=== PATIENT | female | born 1965 | race Caucasian/White ===

== ENCOUNTER 2017-12-27 10:04 | Emergency (ER) | payer OTHER ==
[~2017-12-27] VITALS: Ht 157.5 cm; Wt 88.0 kg
[2017-12-27 10:09] VITALS: BP 113/66
--- NOTE | 2017-12-27 10:16 | NUR ---
PT AMBULATED WITH WALKER TO ER BED 04
[2017-12-27] MEDS ORDERED: NACL 0.9% 1,000 ML IV ONE (10:30)
[2017-12-27] MEDS ORDERED: ONDANSETRON 4 MG/2 ML VIAL IVP ONE (10:30)
--- NOTE | 2017-12-27 10:41 | NUR ---
52 yo f bib self from board and care w/ mulriple complaints. Pt reports history of gastritis. reports vomitting continuosly, diarrhea x 5 times a day. Lost 40 lbs in the last 6 months, unable to hold water down. Pt also reports alan knee pain for years, states that they are "fractured" and is requesting norco and/or percocet. Also pt presents with pulsating headache, requesting Ct scan of head. Weak/fatigue. Reports "not feeling well". AAOx4. gcs 15. cms intact. rr even and unlabored. abd is large and puffy, soft and non-tender. er md sechrist notified. pt needs met. safety precautions in place. will continue to monitor.
[2017-12-27 10:51] LABS: BASOPHILS % (AUTO) 0.7 % (0.0-2.0); EOSINOPHILS # (AUTO) 0.1 K/uL (0-0.4); EOSINOPHILS % (AUTO) 1.7 % (0.0-4.0); HEMATOCRIT 37.9 % (36-48); LYMPHOCYTES # (AUTO) 2.2 K/uL (2.5-16.5); LYMPHOCYTES % (AUTO) 32.2 % (20.5-51.1); MEAN CORPUSCULAR HEMOGLOBIN 31 pg (27-31); MEAN CORPUSCULAR HGB CONC 34 g/dL (33-37); MEAN CORPUSCULAR VOLUME 92.1 fL (80-94); MONOCYTES % (AUTO) 14.5 % (1.7-9.3); NEUTROPHILS # (AUTO) 3.5 K/uL (1.8-7.7); NEUTROPHILS % (AUTO) 50.9 % (42.2-75.2); PLATELET COUNT (AUTO) 243 K/uL (140-450); RED BLOOD CELL COUNT(AUTO) 4.12 MIL/uL (4.20-5.40); RED CELL DISTRIBUTION WIDTH 14.6 % (11.6-13.7); WHITE BLOOD COUNT (AUTO) 6.9 K/uL (4.8-10.8)
[2017-12-27 10:52] LABS: APPEARANCE,URINE CLEAR (CLEAR); BILIRUBIN,URINE 1+ (NEGATIVE); BLOOD, URINE NEGATIVE (NEGATIVE); LEUKOCYTE ESTERASE ,URINE NEGATIVE (NEGATIVE); NITRITE, URINE NEGATIVE (NEGATIVE); PH,URINE 5.5 (5.0-9.0); UGLUCOSE NEGATIVE (NEGATIVE)
[2017-12-27 11:02] LABS: BARBITURATE, URINE NEG. ng/ml (NEG <=200); BENZODIAZEPINE, URINE POS. ng/mL (NEG <=200); CANNABINOID, URINE POS. ng/mL (NEG <=50); COCAINE, URINE NEG. ng/mL (NEG <=300); OPIATE, URINE NEG. ng/mL (NEG <=2000); PHENCYCLIDINE SCREEN,URINE NEG. ng/mL (NEG <=25)
[2017-12-27 11:10] LABS: ALBUMIN 3.5 g/dL (3.4-5.0); ANION GAP 14.3 (8-16); ASPARTATE AMINOTRANSFERASE 9 U/L (15-37); CHLORIDE 107 mmol/L (98-107); GFR ARICAN-AMERICAN 75 mL/min (>90); GLUCOSE 87 mg/dL (74-106); POTASSIUM 3.3 mmol/L (3.5-5.1); SODIUM SERUM 145 mmol/L (136-145); TOTAL BILIRUBIN 0.5 mg/dL (0.0-1.0); UREA NITROGEN, BLOOD 8 mg/dL (7-18)
[2017-12-27 11:17] LABS: COLOR,URINE AMBER (YELLOW)
[2017-12-27 11:59] VITALS: BP 126/71
== END 2017-12-27 12:00 | disposition home or self-care (01) ==
LOC: MED 10:04
DX: F19.10 Other psychoactive substance abuse, uncomplicated (principal); R53.1 Weakness; R11.2 Nausea with vomiting, unspecified; R19.7 Diarrhea, unspecified; M19.90 Unspecified osteoarthritis, unspecified site; F31.9 Bipolar disorder, unspecified; Z88.0 Allergy status to penicillin
CPT/HCPCS: 36415; 80053; 80305; 81003; 83605; 84484; 85025; 93005; 96361; 96374; 99285; G0482; J2405; J7030

== ENCOUNTER 2022-04-05 17:08 | Emergency (ER) | payer OTHER ==
[~2022-04-05] VITALS: Ht 157.5 cm; Wt 81.6 kg
[2022-04-05 17:14] VITALS: BP 122/41
--- NOTE | 2022-04-05 17:16 | NUR ---
BIBA BLS TO ER BED 5
--- NOTE | 2022-04-05 17:22 | NUR ---
LAB AT BEDSIDE.
--- NOTE | 2022-04-05 17:22 | NUR ---
56 y/o female biba from home, pt is actively stating she wants to end her lift by slitting her wrists. pt c/o chronic knee pain and states "I need morphine". pt states she used heroin, marijuana and pcp yesterday and is c/o "fast heart rate". alert and awake, states she is unable to ambulate. pmh: schizophrenia allergy: penicillin, lactose med: zyprexa, risperidol, buspirone, tramadol, ibuprofen
[2022-04-05] MEDS ORDERED: NACL 0.9% 1,000 ML IV ONE (17:25)
[2022-04-05] MEDS ORDERED: KETOROLAC 30 MG/ML VIAL IVP ONE (17:25)
--- NOTE | 2022-04-05 17:26 | NUR ---
DR. MARRERO EVALUATING PATIENT VIA TELEPSYCH.
[2022-04-05] MEDS ORDERED: OLANZapine 5 MG ODT PO ONE (17:45)
[2022-04-05 17:50] LABS: BASOPHILS % (AUTO) 0.5 % (0.0-2.0); EOSINOPHILS % (AUTO) 0.1 % (0.0-4.0); HEMATOCRIT 38.2 % (36-48); LYMPHOCYTES # (AUTO) 2.5 K/uL (2.5-16.5); LYMPHOCYTES % (AUTO) 28.6 % (20.5-51.1); MEAN CORPUSCULAR HEMOGLOBIN 33 pg (27-31); MEAN CORPUSCULAR HGB CONC 34 g/dL (33-37); MEAN CORPUSCULAR VOLUME 97.7 fL (80-94); MONOCYTES # (AUTO) 0.7 K/uL (0.8-1.0); NEUTROPHILS # (AUTO) 5.4 K/uL (1.8-7.7); NEUTROPHILS % (AUTO) 62.8 % (42.2-75.2); PLATELET COUNT (AUTO) 235 K/uL (140-450); RED BLOOD CELL COUNT(AUTO) 3.91 MIL/uL (4.20-5.40); RED CELL DISTRIBUTION WIDTH 12.5 % (11.6-13.7); WHITE BLOOD COUNT (AUTO) 8.6 K/uL (4.8-10.8)
--- NOTE | 2022-04-05 18:14 | NUR ---
pt wheelchair assisted to bathroom 05 to void, urine collected.
--- NOTE | 2022-04-05 18:17 | NUR ---
[place] [employer] at bedside.
[2022-04-05 18:20] LABS: ALBUMIN 3.9 g/dL (3.4-5.0); ANION GAP 18.2 (8-16); ASPARTATE AMINOTRANSFERASE 11 U/L (15-37); CARBON DIOXIDE 21.1 mmol/L (21-32); CHLORIDE 105 mmol/L (98-107); CREATININE 0.9 mg/dL (0.6-1.3); GFR ARICAN-AMERICAN 84 mL/min (>90); GLUCOSE 126 mg/dL (74-106); POTASSIUM 3.3 mmol/L (3.5-5.1); SALICYLATE 10.1 mg/dL (2.8-20.0); SODIUM SERUM 141 mmol/L (136-145); TOTAL BILIRUBIN 0.4 mg/dL (0.0-1.0); UREA NITROGEN, BLOOD 20 mg/dL (7-18)
[2022-04-05 18:34] LABS: ACETAMINOPHEN < 0.5 ug/ml (10-30)
--- NOTE | 2022-04-05 18:52 | NUR ---
Obtained MARY and PCR, walked to lab.
[2022-04-05 18:59] LABS: APPEARANCE,URINE CLEAR (CLEAR); BILIRUBIN,URINE NEGATIVE (NEGATIVE); BLOOD, URINE TRACE-I (NEGATIVE); LEUKOCYTE ESTERASE ,URINE TRACE (NEGATIVE); NITRITE, URINE NEGATIVE (NEGATIVE); UGLUCOSE NEGATIVE (NEGATIVE)
[2022-04-05] MEDS ORDERED: HAL5 PO (19:00)
[2022-04-05] MEDS ORDERED: RISP0.5T3 PO (19:00)
[2022-04-05] MEDS ORDERED: BUS5 PO (19:00)
[2022-04-05] MEDS ORDERED: BENZ2TAB27 PO (19:00)
[2022-04-05] MEDS ORDERED: OLAN2.5T1 PO (19:00)
--- NOTE | 2022-04-05 19:00 | NUR ---
Med recon done.
[2022-04-05 19:10] LABS: COLOR,URINE STRAW (YELLOW); RBC,URINE 0-5 /HPF (0-5); WBC,URINE 0-5 /HPF (0-5)
--- NOTE | 2022-04-05 19:17 | NUR ---
Report given to TREVON Martínez for transfer of care.
--- NOTE | 2022-04-05 19:52 | NUR ---
PATIETN COOPERATIVE AND EATING DINNER. TOLERATING WELL. DOESNT APPEAR TO BE IN DISTRESS.
--- NOTE | 2022-04-05 20:08 | NUR ---
PATIENT TAKEN TO RR VIA W/C AND BACK TO BED 5
--- NOTE | 2022-04-05 20:23 | NUR ---
PATIETN RQ BED LOW AND LIGHTS OFF, IS GOING TO TRY AND REST. PATIENT CALM AND COOPERATIVE.
[2022-04-05 20:28] LABS: BARBITURATE, URINE NEGATIVE ng/ml (NEG <=200); BENZODIAZEPINE, URINE NEGATIVE ng/mL (NEG <=200); CANNABINOID, URINE NEGATIVE ng/mL (NEG <=50); COCAINE, URINE NEGATIVE ng/mL (NEG <=300); OPIATE, URINE NEGATIVE ng/mL (NEG <=2000); PHENCYCLIDINE SCREEN,URINE NEGATIVE ng/mL (NEG <=25)
--- NOTE | 2022-04-05 23:57 | NUR ---
ZOHREH RQ APPLE JUICE
--- NOTE | 2022-04-06 06:15 | NUR ---
SPOKE TO HILL TORRES AT [facility]. STATED THAT SHE WOULD CALL BACK IF ACCEPTED.
--- NOTE | 2022-04-06 07:39 | NUR ---
REPORT GIVEN TO HILL BARNES. TRANSFER OF CARE.
--- NOTE | 2022-04-06 07:45 | NUR ---
REPORT GIVEN TO TREVON OTERO. TRANSFER OF CARE
--- NOTE | 2022-04-06 07:46 | NUR ---
REPORT RECEIVED FROM JAMES LESTER. ASSUMED CARE AT THIS TIME
--- NOTE | 2022-04-06 08:00 | NUR ---
pt in view and sleeping. respirations even and unlabored. bed at lowest position bed rail up x2. sitter at bedside
--- NOTE | 2022-04-06 09:10 | NUR ---
pt awake and eating breakfast.
[2022-04-06] MEDS ORDERED: KETOROLAC 30 MG/ML VIAL IVP ONE (09:45)
--- NOTE | 2022-04-06 10:06 | NUR ---
[facility] BEDSIDE FOR PATIENT TRANSFER TO [facility]
[2022-04-06 10:08] VITALS: BP 112/51
--- NOTE | 2022-04-06 10:08 | NUR ---
Patient to be transferred to [facility]. Is being transferred due to PSYCH SPECIALTY. Receiving facility has accepting physician and available space. ER physician has signed transfer form. Patient or responsible libertarian has agreed to transfer and signed form. Patient belongings inventoried and will be sent with patient. Copy of nursing notes, lab report AND Physicians Orders to be sent with patient. Report called to MELISSA ALEJANDRE BY PM NURSE at receiving facility. [facility] ambulance serviCE AT BEDSIDE
--- NOTE | 2022-04-06 10:10 | NUR ---
The patient's care was reviewed and supervised by Angelica Moreno RN.
--- NOTE | 2022-04-06 11:19 | NUR ---
LATE ENTRY- IV NORMAL SALINE DISCONTINUED AT 1010.
== END 2022-04-06 10:08 ==
LOC: MED 17:08
DX: R45.851 Suicidal ideations (principal); M25.561 Pain in right knee; M25.562 Pain in left knee; M25.572 Pain in left ankle and joints of left foot; Z20.822 Contact with and (suspected) exposure to COVID-19; F31.9 Bipolar disorder, unspecified; F20.9 Schizophrenia, unspecified; F17.210 Nicotine dependence, cigarettes, uncomplicated; Z98.890 Other specified postprocedural states; Z79.899 Other long term (current) drug therapy; Z88.0 Allergy status to penicillin; Z91.011 Allergy to milk products
CPT/HCPCS: 36415; 80053; 80305; 81001; 81025; 85025; 87426; 87635; 96361; 96374; 96375; 99285; C9803; G0480; G0482; J1885; J7030